=== PATIENT | male | born 1965 | race Caucasian/White ===

== ENCOUNTER 2021-08-18 06:30 | Day surgery (SDC) | payer OTHER, SELFPAY ==
[~2021-08-18] VITALS: Ht 162.6 cm; Wt 74.8 kg
[2021-08-18] MEDS ORDERED: SIMETHICONE 40 MG/0.6 ML ML ONE (07:15)
[2021-08-18] MEDS ORDERED: BENZOCAINE 20% 0.5mL UD SPRAY MM ONE (07:16)
[2021-08-18] MEDS ORDERED: MIDAZOLAM HCL 5 MG/5 ML VIAL ONE (07:16)
[2021-08-18] MEDS ORDERED: fentaNYL CITRATE/PF 100 MCG/2 ML AMP ONE (08:30)
[2021-08-18 12:49] VITALS: BP_SYST 88
== END 2021-08-18 09:40 | disposition home or self-care (01) ==
LOC: SDS 06:30
PROVIDERS: ATTEND Internal Medicine
DX: R19.4 Change in bowel habit (principal); K29.70 Gastritis, unspecified, without bleeding; K63.5 Polyp of colon; K64.8 Other hemorrhoids; E11.9 Type 2 diabetes mellitus without complications; Z79.899 Other long term (current) drug therapy; Z20.822 Contact with and (suspected) exposure to COVID-19
CPT/HCPCS: 36415; 43239; 45380; 45385; 82962; 87426; 88305; 88312; 88313; 99152; 99153; G0378; J2250; J3010